=== PATIENT | male | born 1995 | race Caucasian/White ===

== ENCOUNTER 2017-03-31 05:18 | Emergency (ER) | payer BC, OTHER ==
[~2017-03-31] VITALS: Ht 177.8 cm; Wt 63.5 kg
[2017-03-31 05:24] VITALS: BP 145/87
[2017-03-31] MEDS ORDERED: CYCL10TA2 PO (05:50)
[2017-03-31] MEDS ORDERED: NAPR500T PO (05:50)
--- NOTE | 2017-03-31 05:51 | PHYS DOC ---
Past Medical History Past Medical History: Other Additional Past Medical Histor: sports induced asthma, irregular heartbeat Past Surgical History: Tonsillectomy Alcohol Use: None Drug Use: Marijuana Adult General Chief Complaint Chief Complaint: CHEST PAIN HPI HPI Patient is a 21 year old [f__sex] who presents with [] Review of Systems Review of Systems Constitutional: Denies fever or chills [] Eyes: Denies change in visual acuity, redness, or eye pain [] HENT: Denies nasal congestion or sore throat [] Respiratory: Denies cough or shortness of breath [] Cardiovascular: No additional information not addressed in HPI [] GI: Denies abdominal pain, nausea, vomiting, bloody stools or diarrhea [] : Denies dysuria or hematuria [] Musculoskeletal: Denies back pain or joint pain [] Integument: Denies rash or skin lesions [] Neurologic: Denies headache, focal weakness or sensory changes [] Endocrine: Denies polyuria or polydipsia [] Allergies Allergies Allergies Coded Allergies Type Severity Reaction Last Updated Verified No Known Drug Allergies 04/11/14 No Physical Exam Physical Exam Constitutional: Well developed, well nourished, no acute distress, non-toxic appearance. [] HENT: Normocephalic, atraumatic, bilateral external ears normal, oropharynx moist, no oral exudates, nose normal. [] Eyes: PERRLA, EOMI, conjunctiva normal, no discharge. [] Neck: Normal range of motion, no tenderness, supple, no stridor. [] Cardiovascular:Heart rate regular rhythm, no murmur [] Lungs & Thorax: Bilateral breath sounds clear to auscultation [] Abdomen: Bowel sounds normal, soft, no tenderness, no masses, no pulsatile masses. [] Skin: Warm, dry, no erythema, no rash. [] Back: No tenderness, no CVA tenderness. [] Extremities: No tenderness, no cyanosis, no clubbing, ROM intact, no edema. [] Neurologic: Alert and oriented X 3, normal motor function, normal sensory function, no focal deficits noted. [] Psychologic: Affect normal, judgement normal, mood normal. [] Current Patient Data Vital Signs Vital Signs Date Time Temp Pulse Resp B/P (MAP) Pulse Ox O2 Delivery O2 Flow Rate FiO2 03/31/17 05:24 98.0 52 18 99 Room Air 98.0 EKG EKG [] Radiology/Procedures Radiology/Procedures [] Course & Med Decision Making Course & Med Decision Making Pertinent Labs and Imaging studies reviewed. (See chart for details) [] Dragon Disclaimer Dragon Disclaimer This electronic medical record was generated, in whole or in part, using a voice recognition dictation system. Departure Departure Impression: Primary Impression: Chest pain Disposition: HOME, SELF-CARE Condition: IMPROVED Referrals: DOUGLAS CASTILLO MD (PCP) Patient Instructions: Muscle Strain, Shoulder Pain Scripts Naproxen (NAPROSYN) 500 Mg Tablet 500 MG PO BID, #20 TAB Prov: LISET MELENDREZ MD 03/31/17 Cyclobenzaprine Hcl (CYCLOBENZAPRINE HCL) 10 Mg Tablet 10 MG PO TID Y for MUSCLE PAIN, #20 TAB Prov: LISET MELENDREZ MD 03/31/17 LISET MELENDREZ MD Mar 31, 2017 05:51
[2017-03-31] MEDS ORDERED: IBUPROFEN 600 MG TABLET. PO ONE (06:00)
[2017-03-31] MEDS ORDERED: CYCLOBENZAPRINE 10 MG TABLET. PO ONE (06:00)
--- NOTE | 2017-03-31 06:36 | EKG ---
[facility] [address] [place] [address] Test Date: 2017-03-31 Test Time: 05:27:02 Pat Name: SAIRA RAMOS Department: Room: Gender: M Vulnerability Assessment Analyst: : 1995 Requested By: LISET MELENDREZ Order Number: [id number] Reading MD: Linda Grayson Measurements Intervals [place] Rate: 49 P: 50 [place]: 150 QRS: 63 QRSD: 92 T: 26 QT: 418 QTc: 380 Interpretive Statements SINUS BRADYCARDIA QRS(T) CONTOUR ABNORMALITY CONSISTENT WITH ANTEROSEPTAL MYOCARDIAL DAMAGE Electronically Signed On 04-02-2017 12:37:39 CDT by Linda Grayson
--- NOTE | 2017-03-31 06:37 | EKG ---
[facility] [address] [place] [address] Test Date: 2017-03-31 Test Time: 05:29:29 Pat Name: SARIA RAMOS Department: Room: Gender: M Hotel Front Desk Clerk: : 1995 Requested By: LISET MELENDREZ Order Number: [id number] Reading MD: Linda Grayson Measurements Intervals [place] Rate: 49 P: 42 NC: 156 QRS: 64 QRSD: 92 T: 27 QT: 416 QTc: 378 Interpretive Statements SINUS BRADYCARDIA QRS(T) CONTOUR ABNORMALITY CONSISTENT WITH ANTEROSEPTAL MYOCARDIAL DAMAGE Electronically Signed On 04-02-2017 12:40:00 CDT by Linda Grayson
== END 2017-03-31 06:13 | disposition home or self-care (01) ==
LOC: ER 05:18
DX: R07.89 Other chest pain (principal)
CPT/HCPCS: 93005; 99283; 99284